=== PATIENT | female | born 1945 | race Caucasian/White ===

== ENCOUNTER 2018-05-07 20:19 | Emergency (ER) | payer MEDICARE, OTHER ==
[~2018-05-07] VITALS: Ht 157.5 cm; Wt 72.6 kg
--- NOTE | 2018-05-07 20:25 | NUR ---
Dr. Mayes at bedside for MSE.
--- NOTE | 2018-05-07 20:44 | NUR ---
Xray at bedside.
[2018-05-07] MEDS ORDERED: MORPHINE SULFATE 4 MG/1 ML DISP.SYRIN IV ONE ×2 (20:45→22:45)
[2018-05-07] MEDS ORDERED: MORPHINE SULFATE 4 MG/1 ML DISP.SYRIN ONE ×2 (20:48→22:37)
--- NOTE | 2018-05-07 21:07 | NUR ---
Inserted In/Out huffman catheter, pt tolerated procedure well, urine sample collected, sent to lab. Patient's right arm warm to touch, and reddenedMD notified.
[2018-05-07 21:08] LABS: CARBON DIOXIDE 22 mmol/L (21-32); CHLORIDE 104 mmol/L (98-107); CREATININE 0.9 mg/dL (0.6-1.3); GLUCOSE 132 mg/dL (74-106); POTASSIUM 4.1 mmol/L (3.5-5.1); UREA NITROGEN, BLOOD 23 mg/dL (7-18)
[2018-05-07 21:14] LABS: ALANINE AMINOTRANSFERASE 98 U/L (14-59); ALKALINE PHOSPHATASE 200 U/L (50-136); ASPARTATE AMINOTRANSFERASE 150 U/L (15-37); BILIRUBIN,DIRECT 0.1 mg/dL (0.0-0.2); BILIRUBIN,TOTAL 0.4 mg/dL (0.2-1.0); CREATINE KINASE, TOTAL 88 U/L (26-192); TOTAL PROTEIN, SERUM 8.2 g/dL (6.4-8.2)
[2018-05-07 21:17] LABS: BASOPHILS % (AUTO) 0.7 % (0.0-2.0); EOSINOPHILS % (AUTO) 0.3 % (0.0-7.0); HEMATOCRIT 38.2 % (31.2-41.9); HEMOGLOBIN 12.9 g/dL (10.9-14.3); LYMPHOCYTES # (AUTO) 1.1 K/uL (20.0-40.0); LYMPHOCYTES % (AUTO) 17.2 % (20.5-51.5); MEAN CORPUSCULAR HEMOGLOBIN 31.2 uug (24.7-32.8); MEAN CORPUSCULAR HGB CONC 34 g/dL (32.3-35.6); MEAN CORPUSCULAR VOLUME 92.5 fL (75.5-95.3); MONOCYTES # (AUTO) 0.3 K/uL (2.0-10.0); MONOCYTES % (AUTO) 4.7 % (0.0-11.0); NEUTROPHILS # (AUTO) 4.9 K/uL (1.8-8.9); NEUTROPHILS % (AUTO) 77.1 % (38.5-71.5); PLATELET COUNT (AUTO) 272 K/uL (179-408); RED BLOOD CELL COUNT(AUTO) 4.13 MIL/uL (3.63-4.92); WHITE BLOOD COUNT (AUTO) 6.4 K/uL (3.8-11.8)
[2018-05-07 21:35] LABS: *BILIRUBIN,URIN NEGATIVE (NEGATIVE); *BLOOD, URINE NEGATIVE (NEGATIVE); *CLARITY,URINE SLIGHTLY CLOUDY (CLEAR); *COLOR,URINE YELLOW (YELLOW); *KETONES,URINE NEGATIVE (NEGATIVE); *PROTEIN,URINE NEGATIVE (NEGATIVE); *UROBILINOGEN,URINE 0.2 E.U./dl (NORMAL); LEUKOCYTE ESTERASE ,URINE NEGATIVE (NEGATIVE); NITRITE, URINE NEGATIVE (NEGATIVE); UGLUCOSE NEGATIVE (NEGATIVE)
--- NOTE | 2018-05-07 21:39 | NUR ---
Pt out of ER for CT.
[2018-05-07 21:40] LABS: BACTERIA,URINE MANY /HPF (NONE SEEN); RBC,URINE 0-3 /HPF (0-3); SQUAMOUS EPITHELIAL CELL,UR FEW /HPF (NONE SEEN)
[2018-05-07] MEDS ORDERED: NORMAL SALINE FLUSH 10 ML DISP.SYRIN ONE (22:01)
[2018-05-07] MEDS ORDERED: IOHEXOL 300MG/ML 100 ML INFUS..BTL ONE (22:01)
[2018-05-07] MEDS ORDERED: SWABABLE VALVE TRANSFER SET EA MC ONE (22:01)
[2018-05-07] MEDS ORDERED: IV NORMAL SALINE 250 ML IV ONE (22:02)
[2018-05-07] MEDS ORDERED: IV NORMAL SALINE 500 ML BAG IV ONE (22:15)
--- NOTE | 2018-05-07 22:27 | NUR ---
Pt back to ER from CT.
--- NOTE | 2018-05-07 22:35 | NUR ---
Pt states pain on right rib still 04/01, requests more pain meds. MD notified.
[2018-05-08] MEDS ORDERED: HYDROMORPHONE 1 MG/1 ML DISP.SYRIN IV ONE (00:15)
[2018-05-08] MEDS ORDERED: IV NORMAL SALINE 500 ML BAG IV ONE (00:15)
[2018-05-08] MEDS ORDERED: HYDROMORPHONE 1 MG/1 ML DISP.SYRIN ONE (00:16)
--- NOTE | 2018-05-08 02:09 | NUR ---
Patient discharged to home in stable conditon. Written and verbal after care instructions given. Patient verbalizes understanding of instructions. Patient out of ER via wheelchair, taxi voucher given, VSS, no acute signs of distress, all belongings taken, IV site discontinued, assisted patient to transfer to taxi, no falls noted.
[2018-05-08 02:11] VITALS: BP 146/67
== END 2018-05-08 02:12 | disposition home or self-care (01) ==
LOC: ER 20:21
DX: S20.219A Contusion of unspecified front wall of thorax, initial encounter (principal); S09.8XXA Other specified injuries of head, initial encounter; M54.2 Cervicalgia; E11.9 Type 2 diabetes mellitus without complications; X58.XXXA Exposure to other specified factors, initial encounter; Y93.89 Activity, other specified; Y92.89 Other specified places as the place of occurrence of the external cause; Y99.8 Other external cause status
CPT/HCPCS: 36415 ×2; 70450; 71045; 72125; 72170; 74177; 80048; 80076; 81001; 82550; 83605; 84484; 85025; 87040 ×2; 87077; 87086; 87186; 93005; 96374; 96375; 99285; A4663; C1758; J1170; J2270 ×2; J3490; J7040 ×2; J7050; Q9967; 70030-TC